=== PATIENT | female | born 1980 ===

== ENCOUNTER 2016-09-26 11:36 | Observation (INO) | payer OTHER ==
[2016-09-26] MEDS ORDERED: Lactated Ringer's 1,000 ML IV ONE ×2 (16:20→18:20)
[2016-09-26] MEDS ORDERED: Propofol 10 mg/ml Inj (20 ML) ONE (16:25)
[2016-09-26] MEDS ORDERED: Midazolam 2 MG/2 ML VIAL ONE (16:25)
[2016-09-26] MEDS ORDERED: Bupivacaine HCl 0.25% PF (10 ml) Inj ONE (16:29)
[2016-09-26] MEDS ORDERED: cefOXitin IV 1 gm in Dextrose 1 GM/50 ML BAG IVPB ONE (16:30)
[2016-09-26] MEDS ORDERED: Succinylcholine Chloride 20 mg/ml Syr (5 ml) IV ONE (17:55)
[2016-09-26] MEDS: HYDROmorphone 0.5 mg/0.5 ml ISec IVP PRN ×4 (18:28→20:06)
--- NOTE | 2016-09-26 18:31 | PCM.SURG1 ---
Surgeon's Initial Post Op Note - Surgeon's Notes Surgeon: Dr. Carrreo Manager Recruiting: Dr. Diana Type of Anesthesia: General LMA Pre-Operative Diagnosis: 36 yo with Irregular mentrual cycle, Menorrhagia, Fibroid uterus , Chronic pelvic pain , Ovarian cyst 12 cm ( Endometrioma ) Operative Findings: Large Right ovarian cyst ( endometrioma) 12 cm and Left Simple Cystectomy Post-Operative Diagnosis: Same as above Operation Performed: Hysteroscopy D and C, Diagnostic Laparoscopy, Expl. Laparotomy 12 cm ( endometrioma) Right Salpinogophorectomy and Left Ovarian Cystectomy Specimen/Specimens Removed: EMC, ECC, Right Tube and ovary Estimated Blood Loss: EBL {In ML}: 100 Blood Products Given: N/A Drains Used: No Drains Post-Op Condition: Good Date of Surgery/Procedure: 09/26/16 Time of Surgery/Procedure: 18:34
[2016-09-26] MEDS ORDERED: Oxycodone/Acetaminophen 5/325 mg Tab PO PRN (18:35)
[2016-09-26] MEDS ORDERED: HYDROmorphone 0.5 mg/0.5 ml ISec ONE (20:07)
[2016-09-26] MEDS: Oxycodone/Acetaminophen 5/325 mg Tab PO PRN (20:55)
[2016-09-26] MEDS: Lactated Ringer's 1,000 ML IV SCH (23:30)
[2016-09-27] MEDS: Oxycodone/Acetaminophen 5/325 mg Tab PO PRN ×3 (00:55→13:40)
[2016-09-27] MEDS: Lactated Ringer's 1,000 ML IV SCH (08:56)
[2016-09-27] MEDS ORDERED: Pneumococcal 23-Valent Vaccine IM ONE (10:00)
--- NOTE | 2016-09-27 10:13 | OP ---
PROCEDURE DATE: 09/26/2016 PREOPERATIVE DIAGNOSES: Menorrhagia, irregular pelvic pain as well as a complex ovarian cyst on the right side. POSTOPERATIVE DIAGNOSES: Menorrhagia, irregular pelvic pain as well as a complex ovarian cyst on the right side. PROCEDURES: Hysteroscopy, dilation and curettage, diagnostic laparoscopy, exploratory laparotomy, a right salpingo-oophorectomy and the left ovarian drilling. SURGEON: Dr. Carrero. TELEPHONIC NURSE: Dr. Diana. TYPE OF ANESTHESIA: General endotracheal anesthesia. ESTIMATED BLOOD LOSS: 100 mL. CONDITION: In the recovery room was stable. Chamberlain was draining to gravity. COMPLICATIONS: None. SPECIMEN: EMC, ECC as well as right tube and ovary. PROCEDURE: The patient was informed of the risk factors, benefits, and alternatives of procedure. R isk factors included infection, bleeding, damage to surrounding organs and tissue, and complication f rom anesthesia and possible . 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 All questions were answered prior to obtaining the consent form, and the consent form was obtained. In that particular instance, once the consent was obtained, she was then taken to the operating room, prepped and draped in normal sterile fashion, placed in dorsal lithotomy position. A bimanual examination was performed as well as a bimanual rectovaginal examinat ion, which revealed that she had a mass on the right side, which was fixed and nonmobile. Proceeding there, a weighted speculum was placed in the vagina. The anterior lip of the cervix was grasped wit h a single-tooth tenaculum. Uterus was gently sounded to approximately 10 cm. Upon complete uterine dilation, the scope was then placed. A complete surveillance of the uterine cavity was then perform ed. It was noted that she had areas of proliferative endometrium. Upon completion, the scope was th en removed. An EMC and ECC were performed and submitted to pathology. Excellent hemostasis was note d. A HUMI was then advanced in order to manipulate the uterine cavity, and then attention was turned to the abdomen. At the umbilical fold, a 5 mm Optiview was introduced under direct visualization, a nd 4 liters of CO2 gas was given. It was noted that once we went in we noticed that she had a comple x ovarian mass which was approximately 20 cm on the right side. Due to the large mass and it was aide ck onto the side wall, it was proceeded to open and do an exploratory laparotomy. The incision of th e laparoscope was then closed with 3-0 Monocryl. We proceeded to do a Pfannenstiel incision that was made 2 cm above the symphysis pubis. The fascia was then excised with the Bovie. The rectus muscle was . Entered into the abdominal cavity. Two Ashley clamps were used to elevate the perito neum and, under direct visualization, we entered the cavity. It was noted that she had a large ovari an mass what looked to be an endometrioma. The right ureter was identified. The right infundibular ligament and mesovarium ligaments were clamped across a series of steps. With the LigaSure device, t he tissue was then cauterized and divided. The specimen was passed to the pathologist for assessment . In the meanwhile, the left ovary was visualized which noted that she had some simple cysts. Ovari an drilling was then performed. Excellent hemostasis was noted. The abdomen was vigorously irrigate d, making sure that everything was completely clean. Excellent hemostasis was noted. In that partic ular instance, the peritoneum was reapproximated with 2-0 chromic. The fascia was closed with 1-0 Vi cryl. The adipose tissue was reapproximated with 2-0 plain and the skin was closed with 3-0 Monocryl . Excellent hemostasis was noted. Instruments and lap count were correct x 2. The patient was then taken to the recovery room in stable condition and instructed to follow up in the office in approxim ately 6 weeks. Yaima Carrero MD cc: [id number] TT: 09/27/2016 10:12:57 marcus
[2016-09-27 16:10] VITALS: RESP 20
--- NOTE | 2016-09-27 18:29 | CP.PCM.PN ---
Subjective - Date & Time of Evaluation Date of Evaluation: 09/27/16 Time of Evaluation: 18:28 - Subjective Subjective: doing well but has not ambulated, sepulveda in. tolerating regular diet, pain medication working when taking Objective - Vital Signs/Intake and Output Vital Signs (last 24 hours): Temp Pulse Resp BP Pulse Ox 98.2 F 85 20 99/63 L 99 09/27/16 15:30 09/27/16 15:30 09/27/16 15:30 09/27/16 15:30 09/27/16 15:30 Intake and Output: 09/27/16 09/27/16 06:59 18:59 Intake Total 1040 1300 Output Total 975 1200 Balance 65 100 - Medications Medications: Current Medications Docusate Sodium (Colace) 100 mg PO BID [facility] Last Admin: 09/27/16 17:13 Dose: 100 mg Lactated Ringer's (Lactated Ringer's) 1,000 mls @ 100 mls/hr IV .Q10H [facility] Last Admin: 09/27/16 08:56 Dose: 100 mls/hr Ibuprofen (Motrin Tab) 600 mg PO TID [facility] Last Admin: 09/27/16 13:41 Dose: 600 mg Ondansetron HCl (Zofran Inj) 4 mg IVP ONCE PRN PRN Reason: Nausea/Vomiting Last Admin: 09/26/16 20:52 Dose: 4 mg Oxycodone/Acetaminophen (Percocet 5/325 Mg Tab) 1 tab PO Q4 PRN PRN Reason: Pain, moderate (4-7) Stop: 09/29/16 18:36 Last Admin: 09/27/16 13:40 Dose: 1 tab - Labs Labs: APTT 33 SECONDS (21-34) 09/26/16 12:48 - Constitutional Appears: Well - Head Exam Head Exam: ATRAUMATIC, NORMAL INSPECTION - Eye Exam Eye Exam: Conjunctival injection - Respiratory Exam Respiratory Exam: NORMAL BREATHING PATTERN - GI/Abdominal Exam GI & Abdominal Exam: Soft Additional comments: appropriately tender, incision c/d/i - Skin Skin Exam: Normal Color, Warm Assessment and Plan - Assessment and Plan (Free Text) Assessment: POD#1 s/p laparotomy slapingo-oopherectomy for endometrioma Plan: ambulate patient, d/c sepulveda, void in at least 6 hours, regular diet, continue PO pain control
[2016-09-27 19:50] LABS: BASO % 0.5 % (0.0-2.0); EOS # 0.1 K/uL (0.0-0.7); EOS % 1.1 % (0.0-4.0); HEMATOCRIT 31.6 % (34.0-47.0); LYMPH # 1.6 K/uL (1.0-4.3); LYMPH % 22.2 % (20.0-40.0); MEAN CORPUSCULAR HEMOGLOBIN 23.9 pg (27.0-31.0); MEAN CORPUSCULAR HGB CONC 31.9 g/dL (33.0-37.0); MEAN PLATELET VOLUME 8.3 fL (7.2-11.7); MONO # 0.6 K/uL (0.0-0.8); MONO % 8.7 % (0.0-10.0); RED CELL DISTRIBUTION WIDTH 16.2 % (11.5-14.5); WHITE BLOOD COUNT 7.2 K/uL (4.8-10.8)
[2016-09-27 19:58] LABS: CHLORIDE 100 mmol/L (98-107); POTASSIUM 3.8 mmol/L (3.6-5.2); SODIUM 134 mmol/L (132-148)
[2016-09-27 20:01] LABS: BLOOD UREA NITROGEN 10 mg/dL (7-17); CALCIUM 8.5 mg/dl (8.6-10.4); CARBON DIOXIDE 29 mmol/L (22-30); GFR AFRICAN-AMERICAN > 60; GLUCOSE,RANDOM 102 mg/dL (65-105)
[2016-09-28] MEDS: Oxycodone/Acetaminophen 5/325 mg Tab PO PRN (14:15)
[2016-09-28 17:19] VITALS: BP 102/66; PULSE 96; TEMP 98.4; O2SAT 97
--- NOTE | 2016-09-28 17:47 | CP.PCM.PN ---
Subjective - Date & Time of Evaluation Date of Evaluation: 09/28/16 Time of Evaluation: 17:46 - Subjective Subjective: pt passing gas, ambulating, tolerating PO, voiding, paincontrolled Objective - Vital Signs/Intake and Output Vital Signs (last 24 hours): Temp Pulse Resp BP Pulse Ox 98.4 F 96 H 20 102/66 97 09/28/16 16:00 09/28/16 16:00 09/28/16 16:00 09/28/16 16:00 09/28/16 16:00 Intake and Output: 09/28/16 09/28/16 06:59 18:59 Intake Total 420 400 Output Total 500 Balance -80 400 - Medications Medications: Current Medications Diphenhydramine HCl (Benadryl) 25 mg PO Q6 PRN Diphenhydramine HCl (Benadryl) 25 mg PO ONCE ONE Stop: 09/28/16 21:20 Docusate Sodium (Colace) 100 mg PO BID [facility] Last Admin: 09/28/16 09:36 Dose: 100 mg Ibuprofen (Motrin Tab) 600 mg PO Q6H [facility] Stop: 09/30/16 19:01 Last Admin: 09/28/16 13:08 Dose: Not Given Ondansetron HCl (Zofran Inj) 4 mg IVP ONCE PRN PRN Reason: Nausea/Vomiting Last Admin: 09/26/16 20:52 Dose: 4 mg Oxycodone/Acetaminophen (Percocet 5/325 Mg Tab) 1 tab PO Q4 PRN PRN Reason: Pain, moderate (4-7) Stop: 09/29/16 18:36 Last Admin: 09/28/16 14:15 Dose: 1 tab - Labs Labs: 09/27/16 19:46 09/27/16 19:46 APTT 33 SECONDS (21-34) 09/26/16 12:48 - Constitutional Appears: Well - Head Exam Head Exam: ATRAUMATIC, NORMAL INSPECTION, NORMOCEPHALIC - Eye Exam Eye Exam: EOMI, Normal appearance, PERRL - GI/Abdominal Exam GI & Abdominal Exam: Soft, Normal Bowel Sounds. absent: Tenderness Additional comments: incision c/d/i
== END 2016-09-28 19:10 | disposition home or self-care (01) ==
LOC: C.SDS 11:36 → UNDOADMIN 18:49 → C.6T 18:49 → C.9S 18:49 → C.6T 20:38
PROVIDERS: ADMIT Obstetrics & Gynecology; ATTEND Obstetrics & Gynecology
DX: N80.1 Endometriosis of ovary (principal); N83.291 Other ovarian cyst, right side
CPT/HCPCS: 36415; 58558; 58720; 80048; 85025; 85730; 86850; 86900; 88302; 88304; 88305; G0378; J0694; J1170; J1885; J2250; J2405; J2704; J3010; J7120